=== PATIENT | female | born 1990 | race American Indian/Alaskan Native ===

== ENCOUNTER 2017-06-09 17:09 | Emergency (ER) | payer SELFPAY ==
[2017-06-09 17:43] VITALS: BP 131/87
[2017-06-09 18:13] LABS: Hematocrit 30.8 % (30.3-42.9); Hemoglobin 9.6 gm/dl (10.1-14.3); Mean Corpuscular HGB Conc 31 % (30-34); Platelet Count 412 K/mm3 (140-440)
[2017-06-09 18:14] LABS: Mean Corpuscular Hemoglobin 21 pg (28-32); Mean Corpuscular Volume 67 fl (79-97); Red Cell Distribution Width 20.6 % (13.2-15.2)
[2017-06-09 18:25] LABS: Anion Gap 19 mmol/L; Blood Urea Nitrogen 12 mg/dL (7-17); Calcium 9.4 mg/dL (8.4-10.2); Carbon Dioxide 23 mmol/L (22-30); Chloride 100.4 mmol/L (98-107); Glucose 100 mg/dL (65-100); Potassium 3.8 mmol/L (3.6-5.0); Sodium 139 mmol/L (137-145)
[2017-06-09 19:04] LABS: Basophils % (Manual) 0 % (0.0-1.8); Blastocytes % (Manual) 0 %
[2017-06-09 19:05] LABS: Anisocytosis 1+; Diff Status Complete; Hypochromasia 2+; Microcytosis 1+; Platelet Estimate Consistent w Auto
[2017-06-09 19:08] LABS: Bilirubin,Urine SM (Negative); Blood,Urine MOD (Negative); Ketones,Urine 80 mg/dL (Negative); Leukocyte Esterase,Urine NEG (Negative); Mucus,Urine 2+ /HPF; Nitrite,Urine NEG (Negative); WBC,Urine < 1.0 /HPF (0.0-6.0)
== END 2017-06-09 20:30 | disposition left against medical advice (07) ==
LOC: ED 17:09
DX: R07.9 Chest pain, unspecified (principal); Z53.21 Procedure and treatment not carried out due to patient leaving prior to being seen by health care provider
CPT/HCPCS: 36415; 80048; 81001; 84484; 84703; 85007; 85025; 93005; 93010

== ENCOUNTER 2018-12-10 00:06 | Outpatient (CLI) | payer MEDICAID ==
[2018-12-10] MEDS ORDERED: LACTATED RINGERS 1,000 ML IV ONE (00:24)
[2018-12-10 00:29] VITALS: BP 117/72
== END 2018-12-10 02:30 | disposition home or self-care (01) ==
LOC: TRG 00:06
PROVIDERS: ATTEND Obstetrics & Gynecology
DX: O47.03 False labor before 37 completed weeks of gestation, third trimester (principal); O99.513 Diseases of the respiratory system complicating pregnancy, third trimester; J45.909 Unspecified asthma, uncomplicated; Z3A.32 32 weeks gestation of pregnancy
CPT/HCPCS: 36415; 59025; 82731; 87591